=== PATIENT | male | born 1940 | race Caucasian/White ===

== ENCOUNTER 2023-03-19 16:27 | Emergency (ER) | payer MEDICARE ==
[2023-03-19 17:12] LABS: BASOPHILS % (AUTO) 0.5 %; EOSINOPHILS # (AUTO) 0.1 10^3/uL (0.0-0.7); EOSINOPHILS % (AUTO) 0.9 %; HCT - HEMATOCRIT 43.3 % (42.0-52.0); HGB - HEMOGLOBIN 14.5 g/dL (14.0-18.0); LYMPHOCYTES # (AUTO) 1.6 10^3/uL (1.5-3.5); LYMPHOCYTES % (AUTO) 20.4 %; MEAN CORPUSCULAR HGB CONC 33.5 g/dL (32.0-36.0); MEAN CORPUSCULAR VOLUME 86.6 fL (80.0-94.0); MEAN PLATELET VOLUME 9.3 fL (7.4-11.4); MONOCYTES # (AUTO) 0.5 10^3/uL (0.0-1.0); MONOCYTES % (AUTO) 6.3 %; NEUTROPHILS # (AUTO) 5.7 10^3/uL (1.5-6.6); NEUTROPHILS % (AUTO) 71.5 %; PLT - PLATELET COUNT 153 10^3/uL (130-450); RED CELL DISTRIBUTION WIDTH 14.2 % (12.0-15.0)
[2023-03-19 17:37] LABS: ALBUMIN 4.1 g/dL (3.2-5.5); ALBUMIN/GLOBULIN RATIO 1.4 (1.0-2.2); BILIRUBIN,TOTAL 0.5 mg/dL (0.2-1.0); CALCIUM 8.8 mg/dL (8.5-10.3); CREATININE 0.9 mg/dL (0.6-1.3)
--- NOTE | 2023-03-19 19:05 | CT Report ---
PROCEDURE: HEAD WO INDICATIONS: mental status change TECHNIQUE: Noncontrast 4.5 mm thick angled axial sections acquired from the foramen magnum to the vertex. For r adiation dose reduction, the following was used: automated exposure control, adjustment of mA and/or kV according to patient size. COMPARISON: None. FINDINGS: Image quality: Diagnostic. CSF spaces: Basal cisterns are patent. No extra-axial fluid collections. Ventricles are normal in size and shape. Brain: No midline shift. No intracranial masses or hemorrhage. No mass effect. Dee-white matter i nterface is normal. There cerebral volume loss for age with resultant ventricular and sulcal prominen ce. There are periventricular and deep white matter chronic small vessel ischemic changes. Atheroscle rotic calcifications are noted in the intracranial segments of the bilateral internal carotid arterie s. Skull and face: Calvarium and visualized facial bones are intact, without suspicious lesions. Sinuses: Visualized sinuses and mastoids are clear. IMPRESSION: No acute intracranial pathology. Reviewed by: Jos Shaver MD on 03/19/2023 7:04 PM PST Approved by: Jos Shaver MD on 03/19/2023 7:04 PM PST Station ID: [id number]
[2023-03-19 19:10] VITALS: BP 141/89; O2SAT 98
--- NOTE | 2023-03-19 19:17 | ED Physician Documentation ---
History of Present Illness - Stated complaint Stated Complaint: MEMORY LOSS, HIGH BP - Chief complaint Chief Complaint: Neuro - History obtained from History obtained from: Patient, Family - Additonal information Additional information: Patient comes emergency department with his for chief complaint of episode of confusion. The patient had been working outside when he states he just "did not feel right". He did not have any focal neurologic deficits, though it difficult as though his head was in a bubble. His states that she came out and found the patient just standing on the porch and staring. He had apparently taken his truck to a garage to be worked on and the states that the patient was looking in a confused fashion over toward where his truck would normally be parked and wondering where his truck was. When the reminded him that he had taken it to the garage, the patient did not recall the incident. The patient's states that the patient did not have any trouble getting his words out and that he knew who she was and did not seem to be confused about anything else. The patient remembers the event and remembers feeling confused about where the truck was and not remembering why it was gone. The patient states it lasted for about 10 minutes and then the "fog" started to clear. The patient remembers the incident and states that he now remembers the truck being taken to the garage. He has not had any other neurologic episodes. He does have high blood pressure that flares up from time to time and he did note at home that his blood pressure was quite high. No other complaints at this time. PD PAST MEDICAL HISTORY - Past Medical History Past Medical History: Yes Cardiovascular: Hypertension Endocrine/Autoimmune: HyPOthyroidism GI: Hiatal hernia - Past Surgical History Past Surgical History: Yes General: Hiatal hernia repair Ortho: Spine surgery - Present Medications Home Medications: Ambulatory Orders Medication Instructions Recorded Confirmed Levothyroxine [Synthroid] 0 mcg PO QDAC 03/19/23 03/24/23 Aspirin [[place] Aspirin] 81 mg PO DAILY 03/24/23 03/24/23 Lisinopril [Zestril] 20 mg PO DAILY #30 tablet 03/24/23 Magnesium 250 mg PO BID #60 tablet 03/24/23 - Allergies Allergies/Adverse Reactions: Allergies Allergy/AdvReac Type Severity Reaction Status Date / Time [id number] Reductase Allergy Unknown Verified 03/19/23 16:42 Inhibitor - Social History Does the pt smoke?: No Smoking Status: Never smoker Does the pt drink ETOH?: Yes Does the pt have substance abuse?: No PD ED PE NORMAL - Vitals Vital signs reviewed: Yes - General General: Alert and oriented X 3, No acute distress, Well developed/nourished - HEENT HEENT: Atraumatic, PERRL, EOMI, Moist mucous membranes - Neck Neck: Supple, no meningeal sign - Cardiac Cardiac: RRR, No murmur - Respiratory Respiratory: No respiratory distress, Clear bilaterally - Abdomen Abdomen: Soft, Non tender, Non distended - Derm Derm: Normal color, Warm and dry, No rash - Extremities Extremities: No deformity, No edema - Neuro Neuro: Alert and oriented X 3, acid tank cleaner 2-12 intact, No motor deficit, No sensory deficit, Normal speech, Other (NIH stroke scale score 0) - Psych Psych: Normal mood, Normal affect Results - Vitals Vitals: Oxygen O2 Source Room air - Labs Labs: Laboratory Tests 03/19/23 03/19/23 17:04 17:04 WBC 8.0 RBC 5.00 Hgb 14.5 Hct 43.3 MCV 86.6 MCH 29.0 MCHC 33.5 RDW 14.2 Plt Count 153 MPV 9.3 Neut # (Auto) 5.7 Lymph # (Auto) 1.6 [place] # (Auto) 0.5 Eos # (Auto) 0.1 Baso # (Auto) 0.0 Absolute Nucleated RBC 0.00 Nucleated RBC % 0.0 Sodium 131 L Potassium 4.0 Chloride 100 L Carbon Dioxide 21 Anion Gap 10.0 BUN 15 Creatinine 0.9 Estimated GFR (MDRD) 81 L Glucose 103 Calcium 8.8 Total Bilirubin 0.5 AST 12 ALT 14 Alkaline Phosphatase 50 Total Protein 7.0 Albumin 4.1 Globulin 2.9 Albumin/Globulin Ratio 1.4 Lipase 18 - Rads (name of study) Head CT Relevant Findings:: Final report received, See rad report (Negative) PD Medical Decision Making - ED course Complexity details: reviewed old records, reviewed results, re-evaluated patient, considered differential, d/w patient ED course: The patient overall was well-appearing and had no focal neurologic deficits here. He had had a brief episode of Confusion that was very specific to a certain topic and event. It was not clear exactly why this it happened, but I did work him up with labs and CT scan of the head, all of which were unremarkable. The patient was also hydrated with IV fluids and blood pressure did improve in the emergency department. I discussed with the patient and his that I have not found a specific cause for his episode today, and that given that is just confusion, but no aphasia and no motor deficits, I do not feel it is likely that this represents a TIA. We have discussed the need for close follow-up regarding the patient's blood pressure and for return to the emergency department, should he experience worse symptoms. Departure - Departure Disposition: Home, Self Care Clinical Impression: Transient confusion Hypertension Qualifiers: Hypertension type: unspecified Qualified Code(s): I10 - Essential (primary) hypertension Condition: Stable Instructions: ED Confusion, ED HTN Established Comments: Your laboratory studies today look very good, and your CT scan of the head is negative. It is possible that you had a very brief TIA, though your symptoms are a bit unusual for this, considering that symptoms consisted of fairly isolated confusion. It is also possible that with the recent viral illness and then the blood pressure going high, it causes some transient confusion. As far as your blood pressure, if you find that you are having sustained blood pressures higher than normal, or if you are having more frequent episodes where you have a very high blood pressure, you may need to talk to your doctor about having your medication adjusted. If you find that you have recurrent episodes of confusion, you may also need to talk to your primary doctor about having a Mini-Mental status examination to assess cognitive function. However, this may simply be an isolated event that does not recur. In consideration of the possibility of TIA, it is advisable that you take a baby aspirin once daily for prevention. If you develop other focal neurologic symptoms, such as localized weakness, difficulty pronouncing words, or difficulty coming up with the right words, please return to the emergency department immediately. Forms: PCP List Discharge Date/Time: 03/19/23 19:27
== END 2023-03-19 19:27 | disposition home or self-care (01) ==
LOC: ED 16:27
DX: R41.0 Disorientation, unspecified (principal); I10 Essential (primary) hypertension; E03.9 Hypothyroidism, unspecified; Z79.82 Long term (current) use of aspirin; Z79.899 Other long term (current) drug therapy
CPT/HCPCS: 36415; 80053; 83690; 85025; 99283; 99284

== ENCOUNTER 2023-03-24 18:36 | Emergency (ER) | payer MEDICARE ==
--- NOTE | 2023-03-24 18:53 | ED Physician Documentation ---
History of Present Illness - Stated complaint Stated Complaint: HEART PALPITATIONS - History obtained from History obtained from: Patient - Additonal information Additional information: This is a 82-year-old male with a past medical history of hypertension and hypothyroid who presents reporting heart palpitations. The patient states "I am having PVCs." He states he has felt intermittently for many years but over the last half hour or so he has had frequent PVCs. This started after eating dinner, and the patient does recall drinking hot chocolate shortly before that but he has not had any other caffeine or sugar. He feels a little bit dizzy when the PVCs come on but he has no chest pain, no shortness of breath, and otherwise feels well. He has not had any syncope or near syncope, no numbness or tingling or weakness in the extremities, no facial droop or change in speech. He has had some nasal congestion recently but no fever or chills. He has been on lisinopril for a number of years and typically has well-controlled blood pressure but states that lately that it has been elevated. He denies any other medication, no new medication recently. . He does note a number of stressors recently, he does not enjoy the holidays and he has had a number of social engagements and other stressors and he has been taking care of his who had a knee replacement recently. He feels like the stressors may have contributed to this event. He has a follow-up with his PCP already scheduled on March 27. Of note, the patient was seen recently for a episode of confusion. It was thought perhaps he had a TIA. His workup at that time was reassuring and he was started on a daily baby aspirin which she has been taking. Review of Systems Constitutional: reports: Reviewed and negative Eyes: reports: Reviewed and negative Ears: reports: Reviewed and negative Nose: reports: Congestion Throat: reports: Reviewed and negative Cardiac: reports: Palpitations. denies: Pedal edema, Calf pain Respiratory: reports: Reviewed and negative GI: reports: Reviewed and negative : reports: Reviewed and negative Skin: reports: Reviewed and negative Musculoskeletal: reports: Reviewed and negative Neurologic: reports: Reviewed and negative Psychiatric: reports: Reviewed and negative Endocrine: reports: Reviewed and negative PD PAST MEDICAL HISTORY - Past Medical History Past Medical History: Yes Cardiovascular: Hypertension Endocrine/Autoimmune: HyPOthyroidism GI: Hiatal hernia - Past Surgical History Past Surgical History: Yes General: Hiatal hernia repair Ortho: Spine surgery - Present Medications Home Medications: Ambulatory Orders Medication Instructions Recorded Confirmed Levothyroxine [Synthroid] 0 mcg PO QDAC 03/19/23 03/24/23 Lisinopril [Zestril] 10 mg PO DAILY 03/19/23 03/24/23 Aspirin [[place] Aspirin] 81 mg PO DAILY 03/24/23 03/24/23 Magnesium 250 mg PO BID #60 tablet 03/24/23 - Allergies Allergies/Adverse Reactions: Allergies Allergy/AdvReac Type Severity Reaction Status Date / Time [id number]-[id number] Reductase Allergy Unknown Verified 03/19/23 16:42 Inhibitor - Social History Does the pt smoke?: No Smoking Status: Never smoker Does the pt drink ETOH?: Yes Does the pt have substance abuse?: No PD ED PE NORMAL - Vitals Vital signs reviewed: Yes - General General: Alert and oriented X 3, No acute distress, Well developed/nourished - HEENT HEENT: Atraumatic, Moist mucous membranes - Neck Neck: Supple, no meningeal sign, No JVD - Cardiac Cardiac: No murmur, No gallop, No rub, Other (irregular) - Respiratory Respiratory: No respiratory distress, Clear bilaterally - Abdomen Abdomen: Normal bowel sounds, Soft, Non tender, Non distended - Derm Derm: Normal color, Warm and dry, No rash - Extremities Extremities: No deformity, No tenderness to palpate, Normal ROM s pain, No edema, No calf tenderness / cord - Neuro Neuro: Alert and oriented X 3, mica sizer 2-12 intact, No motor deficit, No sensory deficit, Normal speech Eye Opening: Spontaneous Motor: Obeys Commands Verbal: Oriented GCS Score: 15 - Psych Psych: Normal mood, Normal affect Results - Vitals Vitals: Vital Signs - 24 hr 03/24/23 03/24/23 03/24/23 18:40 18:53 19:00 Temperature 37.1 C Heart Rate 104 H 89 Respiratory 20 18 Rate Blood Pressure 212/88 H 165/78 H 158/78 H O2 Saturation 98 96 03/24/23 19:20 Temperature Heart Rate 88 Respiratory 18 Rate Blood Pressure 144/90 H O2 Saturation 96 Oxygen O2 Source Room air - EKG (time done) No standard instances EKG releavant findings:: EKG personally interpreted by author of this note. Relevant findings are: Rate: Rate (enter#) (105), Tachy Rhythm: Sinus tachycardia, Other (bigeminy) [place]: Normal Intervals: Normal [place] QRS: Normal Ischemia: Normal ST segments Compare to prior EKG: Old EKG unavailable Computer interpretation: Agree with computer - Labs Labs: Laboratory Tests 03/24/23 03/24/23 03/24/23 16:50 16:50 19:42 WBC 9.6 RBC 5.15 Hgb 15.0 Hct 44.0 MCV 85.4 MCH 29.1 MCHC 34.1 RDW 14.1 Plt Count 165 MPV 9.6 Neut # (Auto) 6.2 Lymph # (Auto) 2.5 [place] # (Auto) 0.8 Eos # (Auto) 0.1 Baso # (Auto) 0.0 Absolute Nucleated RBC 0.00 Nucleated RBC % 0.0 Sodium 135 Potassium 3.9 Chloride 102 Carbon Dioxide 24 Anion Gap 9.0 BUN 14 Creatinine 1.3 Estimated GFR (MDRD) 53 L Glucose 110 H Calcium 9.3 Magnesium 1.9 Total Bilirubin 0.5 AST 12 ALT 15 Alkaline Phosphatase 51 Troponin I High Sens 5.3 Total Protein 7.3 Albumin 4.3 Globulin 3.0 Albumin/Globulin Ratio 1.4 Lipase 26 TSH 3.32 Urine Color YELLOW Urine Clarity CLEAR Urine pH 6.5 Ur Specific [place] <=1.005 Urine Protein NEGATIVE Urine Glucose (UA) NEGATIVE Urine Ketones NEGATIVE Urine Occult Blood NEGATIVE Urine Nitrite NEGATIVE Urine Bilirubin NEGATIVE Urine Urobilinogen 0.2 (NORMAL) Ur Leukocyte Esterase NEGATIVE Ur Microscopic Review NOT INDICATED Urine Culture Comments NOT INDICATED - Rads (name of study) No standard instances Relevant Findings:: Final report received PD Medical Decision Making - ED course Complexity details: reviewed old records, reviewed results, re-evaluated patient, considered differential, d/w patient, d/w family ED course: 82-year-old male presented with an episode of heart palpitations shortly prior to arrival. On arrival here, patient is hypertensive and in bigeminy though that does quickly improved to normal sinus rhythm with a rate in the 80s. His blood pressure also falls without intervention. We obtained an EKG which shows bigeminy, no acute ischemic changes, chest x-ray is negative, his CBC is unremarkable, CMP only significant for a GFR that is down to 53, it was 81 few days ago however his creatinine is stable at 1.4 and there are no other acute abnormalities. His TSH and troponin are within normal limits. Urinalysis does not show signs of infection. Patient was given 500 mL of IV fluids and I am going to discharge him home with the recommendation to see his PCP on this third as scheduled and they can potentially order a Zio patch or similar and outpa tient follow-up with cardiology. Advised to avoid caffeine and excess sugar, stay well-hydrated, and consider starting low-dose magnesium supplementation. Departure - Departure Disposition: Home, Self Care Clinical Impression: Heart palpitations Hypertension Qualifiers: Hypertension type: unspecified Qualified Code(s): I10 - Essential (primary) hypertension Condition: Good Instructions: ED Palpitations Follow-Up: GHADA DOBBINS PA [Physician No Access] - Prescriptions: Magnesium 250 mg PO BID #60 tablet Comments: You presented with heart palpitations. These are common and your workup today was generally reassuring. You may have some mild dehydration and recommend that you stay well-hydrated. Your blood pressure was initially quite high when you came in but it has come down and this may have been a stress response from coming into the hospital. Please keep your appointment with your primary doctor on Saturday and they will recheck your blood pressure at that time. They may need to adjust your blood pressure medication if you remain elevated. In the meantime, please stay hydrated, avoid caffeine, sugar, and try to reduce her stress which can contribute to heart palpitations. We recommend that you have an outpatient Zio Patch or home heart monitor for a period of time to monitor and see a finance teacher in the next month or so. Return at anytime to the ER if worsening symptoms. Forms: PCP List
[2023-03-24 19:01] LABS: BASOPHILS % (AUTO) 0.2 %; EOSINOPHILS # (AUTO) 0.1 10^3/uL (0.0-0.7); EOSINOPHILS % (AUTO) 0.8 %; LYMPHOCYTES # (AUTO) 2.5 10^3/uL (1.5-3.5); LYMPHOCYTES % (AUTO) 26.3 %; MEAN CORPUSCULAR HEMOGLOBIN 29.1 pg (27.0-31.0); MEAN CORPUSCULAR HGB CONC 34.1 g/dL (32.0-36.0); MEAN CORPUSCULAR VOLUME 85.4 fL (80.0-94.0); MEAN PLATELET VOLUME 9.6 fL (7.4-11.4); MONOCYTES # (AUTO) 0.8 10^3/uL (0.0-1.0); MONOCYTES % (AUTO) 7.9 %; NEUTROPHILS # (AUTO) 6.2 10^3/uL (1.5-6.6); NEUTROPHILS % (AUTO) 64.6 %; PLT - PLATELET COUNT 165 10^3/uL (130-450); RED BLOOD COUNT 5.15 10^6/uL (4.70-6.10); RED CELL DISTRIBUTION WIDTH 14.1 % (12.0-15.0); WHITE BLOOD COUNT 9.6 x10^3/uL (4.8-10.8)
--- NOTE | 2023-03-24 19:09 | XRAY Report ---
PROCEDURE: Chest 1V INDICATIONS: chest pain TECHNIQUE: One view of the chest was acquired. COMPARISON: None. FINDINGS: Surgical changes and devices: None. Lungs and pleura: No pleural effusions or pneumothorax. Lungs are clear. Mediastinum: Mediastinal contours appear normal. Heart size is normal. Bones and chest wall: No suspicious bony lesions. Overlying soft tissues appear unremarkable. IMPRESSION: No acute cardiopulmonary process. Reviewed by: Josué Joaquin MD on 03/24/2023 7:07 PM [facility] Approved by: Josué Joaquin MD on 03/24/2023 7:07 PM [facility] Station ID: [id number]
[2023-03-24 19:20] LABS: ALBUMIN 4.3 g/dL (3.2-5.5); ALBUMIN/GLOBULIN RATIO 1.4 (1.0-2.2); BILIRUBIN,TOTAL 0.5 mg/dL (0.2-1.0); CALCIUM 9.3 mg/dL (8.5-10.3); CREATININE 1.3 mg/dL (0.6-1.3); MAGNESIUM 1.9 mg/dL (1.7-2.3); POTASSIUM 3.9 mmol/L (3.5-4.5); TOTAL PROTEIN 7.3 g/dL (6.4-8.9)
[2023-03-24 19:22] LABS: TROPONIN I HIGH SENSITIVITY 5.3 ng/L (2.3-19.7)
[2023-03-24 19:31] LABS: THYROID STIMULATING HORMONE 3.32 uIU/mL (0.34-5.60)
[2023-03-24] MEDS ORDERED: SODIUM CHLORIDE 0.9% 500 ML IV STA (19:43)
[2023-03-24 19:44] LABS: BILIRUBIN,URINE NEGATIVE (NEGATIVE); GLUCOSE, URINE (UA) NEGATIVE (NEGATIVE); KETONES,URINE (UA) NEGATIVE (NEGATIVE); LEUKOCYTE ESTERASE, URINE NEGATIVE (NEGATIVE); NITRITE,URINE NEGATIVE (NEGATIVE); OCCULT BLOOD,URINE NEGATIVE (NEGATIVE); PH,URINE 6.5 PH (5.0-7.5); PROTEIN,URINE NEGATIVE (NEGATIVE); UROBILINOGEN,URINE 0.2 (NORMAL) E.U./dL (NORMAL)
[2023-03-24 19:49] LABS: CLARITY,URINE CLEAR (CLEAR)
[2023-03-24 20:36] VITALS: BP 166/93; O2SAT 97
== END 2023-03-24 20:15 | disposition home or self-care (01) ==
LOC: ED 18:36
DX: I10 Essential (primary) hypertension (principal)
CPT/HCPCS: 36415; 80053; 81001; 81003; 83690; 83735; 84443; 84484; 85025; 87086; 93005; 99283; 99284